=== PATIENT | male | born 1955 | race Caucasian/White ===

== ENCOUNTER → 2017-10-21 | Outpatient (CLI) | payer OTHER ==
[~2017-10-21] MED LIST: 5-HTP50 MG PO; ACETAMINOPHEN-1 EAC2 PO; ALBUTEROL NEB IH; BENICAR20 MG PO; CARDIZEM CD120 MG PO; CARDIZEM CD180 MG PO; COMBIVENT INH; DOXEPIN HCL100 MG PO; DOXYCYCLINE 10100 MG PO; IMDUR 30 MG TAB30 M1 PO; IMDUR 60 MG TAB60 M1 PO; NITROSTAT0.4 MG SL; PREDNISONE 1 MG1 M1 PO; PREDNISONE 5 MG5 MG PO; XANAX 0.25 MG0.25 MG PO; XOPENEX HFA15 GM IH
== END ==
LOC: RAD 12:27
DX: J44.9 Chronic obstructive pulmonary disease, unspecified (principal)